=== PATIENT | male | born 1980 | race Hispanic/Latino ===

== ENCOUNTER 2021-07-20 16:41 | Emergency (ER) | payer SELFPAY ==
[~2021-07-20] VITALS: Ht 188 cm; Wt 84.8 kg
[2021-07-20 16:43] VITALS: BP 145/109
[2021-07-20 20:45] VITALS: BP 140/89
[2021-07-20] MEDS ORDERED: IBUP-2088 PO (21:11)
[2021-07-20] MEDS ORDERED: CEPH500B PO (21:11)
== END 2021-07-20 21:29 | disposition home or self-care (01) ==
LOC: EDH 16:41
DX: S61.412A Laceration without foreign body of left hand, initial encounter (principal); Z79.1 Long term (current) use of non-steroidal anti-inflammatories (NSAID); X58.XXXA Exposure to other specified factors, initial encounter; Y93.89 Activity, other specified; Y92.89 Other specified places as the place of occurrence of the external cause; Y99.8 Other external cause status
CPT/HCPCS: 12002; 73130